=== PATIENT | female | born 1995 | race Caucasian/White ===

== ENCOUNTER → 2025-03-02 12:45 | Outpatient (REF) | payer MEDICARE, OTHER, SELFPAY | LOC: HWRCS 12:45 | PROVIDERS: ATTENDING PHYSICIAN Internal Medicine; FAMILY PHYSICIAN Nurse Practitioner Family | DX: I25.10 Atherosclerotic heart disease of native coronary artery without angina pectoris (principal); I10 Essential (primary) hypertension; Q96.9 Turner's syndrome, unspecified; I25.2 Old myocardial infarction | CPT/HCPCS: 93306 ==